=== PATIENT | female | born 1990 | race Two or more races ===

== ENCOUNTER 2017-02-02 17:23 | Emergency (ER) | payer MEDICAID ==
[~2017-02-02] VITALS: Ht 160 cm; Wt 108.9 kg
[~2017-02-02 17:23] MED LIST: ALPR1TAB7 PO
[2017-02-02 18:51] LABS: Urine Bilirubin Negative (Negative); Urine Blood 2+ /uL (Negative); Urine Color Yellow (Yellow); Urine Glucose Normal (Normal); Urine Ketone Negative (Negative); Urine Mucus FEW (None Seen); Urine Nitrite Negative (Negative); Urine RBC 1 /hpf (0 - 4); Urine Squamous Epithelial Cell MOD /hpf (<5); Urine Urobilinogen Normal (Negative)
[2017-02-02 18:58] LABS: Albumin 3.6 g/dL (3.4-5.0); BUN/Creatinine Ratio 14.9; Bilirubin, Total 0.2 mg/dL (0.2-1.0); Calcium 8.7 mg/dL (8.5-10.1); Potassium 3.8 mmol/L (3.5-5.1); Total Protein 7.9 g/dL (6.4-8.2)
[2017-02-02 19:15] LABS: Basophils # (auto) 0.1 uL; Basophils % (auto) 0.7 % (0.0-2.0); CONDITION Y; DEFINITIVE SEE PRINTOUT; Eosinophils # (auto) 0.3 uL; Eosinophils % (auto) 4.2 % (0.0-7.0); Hematocrit 31.2 % (36.0-46.0); Hemoglobin 10.1 g/dL (12.2-16.2); Lymphocytes # (auto) 1.6 uL; Mean Corpuscular Hemoglobin 23.2 pg (28.0-32.0); Mean Corpuscular Hgb Conc. 32.4 g/dL (32.0-36.0); Mean Corpuscular Volume 71.7 fL (80.0-100.0); Mean Platelet Volume 8.6 fL (6.9-10.8); Monocytes # (auto) 0.5 uL; Monocytes % (auto) 6.5 % (0.0-12.0); Neutrophils # (auto) 5.2 uL; Neutrophils % (auto) 67.6 % (37.0-80.0); Platelet Count (auto) 348 10^3/uL (140-450); Red Cell Distribution Width 17.9 % (11.8-14.3); White Blood Cell 7.7 10^3/uL (4.4-10.8)
[2017-02-02 20:19] LABS: Hypochromia Moderate; Microcytosis Slight; Platelet Estimate Adequate
[2017-02-03 01:24] LABS: Amylase 61 U/L (25-115)
[2017-02-03 01:25] VITALS: BP 130/70
== END 2017-02-03 02:52 | disposition left against medical advice (07) ==
LOC: ER 17:32
DX: R07.89 Other chest pain (principal); R11.2 Nausea with vomiting, unspecified; M54.9 Dorsalgia, unspecified; Z53.29 Procedure and treatment not carried out because of patient's decision for other reasons
CPT/HCPCS: 36415; 71020; 76705; 80053; 81001; 81025; 82150; 83690; 84484; 85025; 93005

== ENCOUNTER 2018-04-09 20:06 | Emergency (ER) | payer MEDICAID ==
[~2018-04-09] VITALS: Ht 160 cm; Wt 108.9 kg
[2018-04-09 20:52] LABS: Basophils # (auto) 0.1 uL; Eosinophils # (auto) 0.1 uL; Monocytes # (auto) 0.4 uL
[2018-04-09 20:54] LABS: Basophils % (auto) 1.2 % (0.0-2.0); Eosinophils % (auto) 1.6 % (0.0-7.0); Hematocrit 34.3 % (36.0-46.0); Hemoglobin 10.9 g/dL (12.2-16.2); Lymphocytes # (auto) 1.1 uL; Lymphocytes % (auto) 19.9 % (10.0-50.0); Mean Corpuscular Hemoglobin 24.6 pg (28.0-32.0); Mean Corpuscular Hgb Conc. 31.9 g/dL (32.0-36.0); Mean Corpuscular Volume 77.2 fL (80.0-100.0); Monocytes % (auto) 7.4 % (0.0-12.0); Neutrophils # (auto) 3.9 uL; Neutrophils % (auto) 69.9 % (37.0-80.0); Nucleated Red Blood Cells % 0.1 %; Platelet Count (auto) 294 10^3/uL (140-450); Red Blood Cells 4.44 10^6/uL (4.0-5.20); Red Cell Distribution Width 15.8 % (11.8-14.3); White Blood Cell 5.6 10^3/uL (4.4-10.8)
[2018-04-09 21:06] LABS: Albumin 3.7 g/dL (3.4-5.0); Calcium 8.3 mg/dL (8.5-10.1)
[2018-04-09 21:09] LABS: BUN/Creatinine Ratio 16.3; Bilirubin, Total 0.3 mg/dL (0.2-1.0); Total Protein 7.9 g/dL (6.4-8.2)
[2018-04-09 23:02] LABS: Urine Bacteria FEW /hpf (None Seen); Urine Blood TRACE /uL (Negative); Urine Specific Gravity 1.024 (1.001-1.035); Urine WBC 1 /hpf (0 - 5)
[2018-04-09 23:43] LABS: Alcohol, Urine < 3.0 mg/dL (0-5); Amphetamine Screen, Urine NEGATIVE (NEGATIVE); Barbiturate Scree,Urine NEGATIVE (NEGATIVE); Benzodiazephine Screen, Urine POSITIVE (NEGATIVE); Cannabinoid Screen, Urine NEGATIVE (NEGATIVE); Cocaine Screen, Urine NEGATIVE (NEGATIVE)
[2018-04-09 23:52] LABS: Opiate Scree,Urine NEGATIVE (NEGATIVE); Phencyclidine Screen, Urine NEGATIVE (NEGATIVE)
[2018-04-10 00:14] VITALS: BP 120/67
== END 2018-04-10 01:25 | disposition left against medical advice (07) ==
LOC: EDUNIT# 20:06 → ER 20:06 → EDBD 20:06 → ER 04-10 01:25
DX: O99.345 Other mental disorders complicating the puerperium (principal); F41.9 Anxiety disorder, unspecified; F32.9 Major depressive disorder, single episode, unspecified; Z90.89 Acquired absence of other organs; Z53.29 Procedure and treatment not carried out because of patient's decision for other reasons
CPT/HCPCS: 36415; 76830; 76856; 80053; 80307; 81001; 84702; 85025

== ENCOUNTER 2019-01-25 04:50 | Emergency (ER) | payer MEDICAID ==
[~2019-01-25] VITALS: Ht 160 cm; Wt 117.9 kg
[2019-01-25 05:01] VITALS: BP 153/90
== END 2019-01-25 07:37 | disposition home or self-care (01) ==
LOC: EDBD 04:50 → ER 04:52
DX: K04.7 Periapical abscess without sinus (principal); J03.90 Acute tonsillitis, unspecified
CPT/HCPCS: 81025